=== PATIENT | male | born 1960 | race Caucasian/White ===

== ENCOUNTER 2017-11-22 06:56 | Inpatient (IN) | payer MEDICARE, MEDICAID, SELFPAY ==
[2017-10-25 14:48] VITALS: BMI 36.1
[2017-11-22] VITALS (17 sets, daily range): BP systolic 105–153; BP diastolic 78–97; PULSE 78–105; RESP 10–20; TEMP 36.2–36.7; O2SAT 87–98; BMI 36.6
--- NOTE | 2017-11-22 | DI.RAD.S_ITS ---
PROCEDURE: XR HIP W PEL IF DONE LT 2V INDICATIONS: POST OPERATIVE TOTAL LEFT HIP TECHNIQUE: AP pelvis and lateral view of the left hip acquired. COMPARISON: [facility], MELISSA, XR PELVIS 1-2V, 11/22/2017, 9:31. FINDINGS: Bones: Patient is status post left hip arthroplasty, with hardware components in expected positions. The hip joint appears congruent. The visualized bony structures appear intact. Soft tissues: Overlying postoperative changes are noted. No suspicious soft tissue densities. IMPRESSION: Normal postoperative alignment after left total hip arthroplasty. Dictated by: Omar Ariza M.D. on 11/22/2017 at 11:55 Approved by: Omar Ariza M.D. on 11/22/2017 at 11:56
--- NOTE | 2017-11-22 06:56 | DI.RAD.S_ITS ---
PROCEDURE: XR PELVIS 1-2V INDICATIONS: prosthesis placement TECHNIQUE: 1 view of the lower pelvis acquired. COMPARISON: None. FINDINGS: Bones: Patient is status post left hip arthroplasty, with hardware components in expected positions. The hip joint appears congruent. The visualized bony structures appear intact. Soft tissues: Overlying postoperative changes are noted. No suspicious soft tissue densities. IMPRESSION: Post surgical changes from left total hip arthroplasty with anatomic left hip alignment. Dictated by: Bayron Orozco M.D. on 11/22/2017 at 10:17 Approved by: Bayron Orozco M.D. on 11/22/2017 at 10:18
[2017-11-22] MEDS: VANCOMYCIN 1,000 MG in SODIUM CHLORIDE 0.9% 500 ML 250 ML IV (07:15)
[2017-11-22] MEDS: LACTATED RINGERS 1,000 ML 42 ML IV (07:15)
[2017-11-22] MEDS: CELECOXIB 200 MG CAPSULE PO (07:19)
[2017-11-22] MEDS: PREGABALIN 75 MG CAPSULE PO (07:19)
--- NOTE | 2017-11-22 07:58 | PM.PREOP ---
Pre-operative Note Interval Note Pre-op Check: Yes History & Physical Reviewed by Physician and Yes Exam Performed Changes: No
--- NOTE | 2017-11-22 07:59 | PM.OP.1 ---
Operative Date/Time/Diagnoses Date of procedure: 11/22/17 Time of procedure: 08:11 Pre-op diagnosis: left hip AVN Post-op diagnosis: same Procedure & Clinicians Procedure: left total hip arthroplasty Same procedure as scheduled: Yes Indications: The patient has had progressively worsening left hip pain with radiographic changes consistent with arthritis. Non-operative management has failed and the patient has requested total hip replacement. The risks, benefits and alternatives to surgery were discussed with the patient prior to proceeding. Risks discussed included, but were not limited to, failure to relieve pain, leg length discrepancy, dislocation, stiffness, infection, nerve damage, deep venous thrombosis, pulmonary embolism, stroke, coma, heart attack, permanent paralysis and , as well as the potential need for eventual revision of the prosthetic. Surgeon: Shikha Aquino Meteorological Equipment Repairer: Norma Riggins Anesthesia Type: General Operative Notes Findings: Severe left hip avascular necrosis Closure Type: primary Specimen(s): none sent Implants & Drains: aquino and nephew R3 56, high offset size 8 anthology, +8 Estimated Blood Loss (mL): 300 Blood products transfused: none Procedure in detail: The patient was seen in the pre-operative area, where the patient identified the left hip as the operative site and this was marked with my initials. The patient received pre-operative antibiotics and was taken to the operating room and placed on the operative table in the right lateral decubitus position after satisfactory anesthesia. A brake coupler dinkey out was performed. The left leg was prepared from the ankle to the iliac crest with ChloroPrep in the usual fashion and draped through sterile drapes. The hip was approached through an approximately 20 cm incision centered over the greater trochanter and curving gently posteriorly as it went proximally. This was carried sharply to the fascia christina, which was divided and retracted with a self retaining retractor. The trochanteric bursa was excised with care being taken to avoid the sciatic nerve, which was identified and protected throughout the case. The short external rotators were incised and the capsulomuscular flap was raised and tagged for later repair. The hip was dislocated, and a femoral neck osteotomy performed approximately 15 mm above the lesser trochanter. Retractors were placed around the femur. The canal was opened with a box cutting osteotome, followed by a T handled reamer and a lateralizing reamer. The chili pepper broach was then used, followed by sequential broaching until there was good stability of the broach in the femur. Retractors were placed to expose the acetabulum. The labrum and central soft tissues were removed. Reaming was performed initially going up in 2 mm increments, then 1 mm increments until good bite was obtained with an odd sized reamer. The cup 1 mm larger than the last reamer was then inserted using the appropriate anteversion guides. A trial neutral liner was placed. The broach was placed in the canal. A trial head and neck were then placed and the hip relocated and checked for leg length and stability. An intraoperative film confirmed the component position and no evidence of fracture. The patient was stable in the position of sleep, of squatting, and could be put through a range of motion with 45 degrees internal rotation without dislocation. At 90 degrees flexion, internal rotation to 70 was possible before dislocation. This was felt to be satisfactory and the appropriate components were opened, and the trials were removed. The acetabular liner was impacted into position. The final stem was then impacted into the prepared femoral canal. A brief Betadine soak was performed while trialing with head options. The hip was meticulously irrigated with normal saline. Finally the femoral head was impacted onto the stem. The acetabulum was cleared of all material and the hip relocated one final time. The capsulomuscular flap was then repaired to the greater trochanter though an awl hole using the tag sutures. The short external rotators were repaired with a black braided nylon. A deep drain was placed and brought out anteriorly. The fascia christina was closed with black braided nylon. The subcutaneous layer was closed with barbed sutures and SteriStrips. An Aquacel Ag dressing was applied and the patient was taken to recovery having tolerated the procedure well. Complications: none Condition: stable Disposition: Acute Care Plan for aftercare: The patient will be maintained on a standard total hip replacement protocol with weight bearing as tolerated and posterior hip precautions. The patient will receive Aspirin and sequential compression devices for DVT prophylaxis. The patient will be discharged home when safe for the home environment.
[2017-11-22] MEDS: CEFAZOLIN 2 GM/100 ML FROZ.PIGGY IV ×2 (08:01→16:30)
[2017-11-22] MEDS: TRANEXAMIC ACID 1,000 MG VIAL 1000 MG IV (08:25)
--- NOTE | 2017-11-22 08:49 | SUR.OPER ---
Lateral on padded OR bed. Gel axillary roll. Arms secured on padded armboard with pillow supporting top arm. Padded hip positioner braces x4 - anterior and posterior chest and pelvis. Additional gel pad used anterior pelvis. Gel pad under bottom leg from knee to foot and secured with tape over sheet.
[2017-11-22] MEDS: POVIDONE-IODINE 15 ML, SODIUM CHLORIDE 0.9% 250 ML TOP (09:03)
[2017-11-22] MEDS: BUPIVACAINE LIPOSOME 266 MG/20 ML VIAL INJ (09:04)
[2017-11-22] MEDS: SODIUM CHLORIDE IRRIG SOLUTION 250 ML, EPINEPHrine 1 MG IRR (09:05)
[2017-11-22] MEDS: BUPIVACAINE 0.25% W/ EPI VIAL 50 ML INJ (09:07)
[2017-11-22] MEDS: TRANEXAMIC ACID 1,000 MG VIAL 1000 MG INJ (10:18)
[2017-11-22] MEDS: fentaNYL 100 MCG/2 ML INJ 50 MCG IV ×3 (10:45→10:58)
[2017-11-22] MEDS: LORazepam 2 MG/ML SYRINGE 0.25 MG IV ×3 (11:10→11:31)
[2017-11-22] MEDS: OXYCODONE/ACETAMINOPHEN 5/325 TABLET 1 TAB PO (11:27)
[2017-11-22] MEDS: KETOROLAC 30 MG/ML VIAL IV (12:37)
[2017-11-22] MEDS: ACETAMINOPHEN 325 MG TABLET 975 MG PO ×2 (12:38→21:05)
[2017-11-22] MEDS: LACTATED RINGERS 1,000 ML 125 ML IV ×2 (12:38→21:14)
[2017-11-22] MEDS: OXYCODONE IR 5 MG TABLET 10 MG PO ×2 (13:15→17:11)
--- NOTE | 2017-11-22 13:50 | PC.NURSE ---
Hip precautions: Confirmed with Dr Estes (via STUDIO MODEL) that patient's surgery was done with a posterior approach. Will pass this info along to PT.
--- NOTE | 2017-11-22 14:41 | PT.IIE ---
Current Diagnoses Unilateral primary osteoarthritis, left hip (11/22/17) Surgery Performed Operation Date: 11/22/17 07:45 Actual Procedures p Total Hip Arthroplasty(Left) - Shikha Estes MD Surgical History (Last Updated 08/26/17 @ 11:24 by Niurka Nolen RN) History of vasectomy (Acute) Hx of cervical discectomy (Acute) Medical History (Last Updated 08/26/17 @ 11:24 by Niurka Nolen RN) Abscess (Acute) Anxiety about health (Acute) Cardiomyopathy (Acute) Chronic back pain (Acute) DVT, bilateral lower limbs (Acute) Epididymitis (Acute) Hepatitis C carrier (Acute) History of tooth extraction (Acute) MRSA (methicillin resistant Staphylococcus aureus) (Acute) Methemoglobinemia (Acute) Numbness (Acute) Obturator dislocation of left hip (Acute) Pelvic fracture (Acute) Pneumonia (Acute) Seizures (Acute) Stomach ache (Acute) Physical Therapy Inpatient Evaluation/Re-Eval Medical Review Prior Functional Status Medical History Reviewed Yes Diet/Fluid Consistency Regular Communication no known deficits Mobility and Gait mod ind w/ FWW Activities of Daily Living and IADL's reports not needing any help do complete self-care activities Social History Household Members significant other friend(s) Living Arrangements House Number of Floors (Floors) One Floor Number of Stairs To Enter/Railing? 2STE, no rails. Home Environment Standard Height Toilet Tub/Shower Home Equipment Front Wheel Walker Additional Social History Comment SO can provide 24/7 assist per pt Physical Therapy Current Condition Current Condition Evaluation Date 11/22/17 Treatment Diagnosis L post GEMINI Onset Date 11/22/17 Precautions Posterior Hip Precautions No Hip Flexion > 90 degrees No Hip Internal Rotation No Hip Adduction Weight Bearing Status Weight Bearing Status Weight Bear as Tolerated Subjective Physical Therapy Visit Type Type Initial Evaluation Visit Start Time 13:55 Visit Stop Time 14:27 Total Visit Minutes 32 Physical Therapy Visit Comments Patient Comments Pt reports 8/10 pain at rest but that he couldn't be happier about how well he's doing after finally getting this surgery. Short Term Goals go home Therapy Pain Assessment Pain When Pain Assessed At Rest Pain Present Pain Present Pain Reported Location Left Hip Intensity 8 Scale Used Numeric (1 - 10) Description Aching Cramping Pressure Pain Management Techniques Modification of Treatment Timing of Activity with Medications PT-Transfer Assessment Comments Mobility Comments not safe to perform mobility at this time. Gait Assessment Comments Gait Comments not safe to perform mobility at this time. Stair Climbing Assessment Comments Stair Climbing Comments not safe to perform mobility at this time. Orientation Orientation/Cognition Level of Alertness Confusional State Orientation Name Age Birthday Month Date Year Day of Week Place Situation Safety Awareness Decreased Safety Awareness Comments Pt able to answer all questions correctly but sometimes needing a significant amount of time with tangential paths to get to the answer. Pt having an extremely hard time keeping his eyes open during questioning but wakes easily to voice and is talkative for a few moments before falling asleep again. Gross Range of Motion Upper Extremity ROM Assessment Within Functional Limits Lower Extremity ROM Assessment Left Impaired Strength Upper Extremity Strength Assessment Within Functional Limits Lower Extremity Strength Assessment Left Impaired Comments Strength Comments pain related weakness s/p L GEMINI Physical Therapy Treatment Exercises Exercises Ankle Pumps Gluteal Sets Quad Sets Heel Slides Supine Hip Abduction Education Education Provided Precautions Weight Bearing Status Post-Op Packet Safety PT Summary Assessment and Plan Potential Rehabilitation Potential Fair Status of Condition at Evaluation Evolving Summary Impairments Pain Strength Cognition Bed Mobility Transfers Gait Activity Tolerance Progress Towards Goals Slow Progress due to Medical Issues Assessment Summary Pt is POD#0 L post GEMINI. Laying flat in supine pt's legs both appear to be the same length. Pt having difficulty staying awake and focused on each task , needing near constant cues for minimal participation. Even during exercises pt was falling asleep mid-movement. Pt has good quad activation and can perform heel slides and hip abd/add with assist. Pt denied increase in pain while performing exercises. However, it is not safe for pt to attempt a mobility assessment at this time due to his impaired level of arousal . Will attempt to finish assessment later today or tomorrow, after which a more accurate recommendation can be made for dispo. Goals Bed Mobility Goal Standby Assistance Transfer Goal Standby Assistance Front Wheeled Walker Gait Goal Standby Assistance Front Wheel Walker Gait Distance 50 Other Goals Up 2 steps without rail with CGA. Days to Meet Goals 3 Frequency of Treatment Frequency Of Treatment Twice a Day Treatment Plan Physical Therapy Treatment Plan Bed Mobility Training Transfer Training Gait Training Therapeutic Exercise Balance Retraining Post Op Education Discharge Planning Hot or Cold Pack Neuromuscular Re-ed Coordination Retraining Manual Therapy Recommendations To Nursing Amount of Assist Needed 2 Person Assist Discharge Recommendations PT Discharge Recommendations Home with 24/ Assist SNF Rehab
--- NOTE | 2017-11-22 14:42 | PC.NURSE ---
Post-op: Arrived to room 211 at 1155. Awake, drowsy. Dozing intermittently, but any time he's awake he rates his L hip pain 8/10. Has been medicated with IV Toradol, Oxycodone and Tylenol per orders. Ice pack to L hip. L hip dressing C/D/I, hemovac compressed and with sanguinous drainage. CMS++, strong pedal pulses, cap refill <2 sec. Pillow between legs, SCD's in place. Tolerating general diet without N/V. On 2L O2 with sats mid 90's asleep (de-sats on RA asleep to 87-88%). IVF per orders, site in L hand WNL. Oriented to room and call light. Chair alarm on patient in bed (bed needs re-zeroed when he gets up).
--- NOTE | 2017-11-22 16:46 | PC.NURSE ---
Addendum entered by Maureen Ricardo R.N. 11/22/17 21:43: Med @ 2110 w/ oxycodone 15mg for discomfort. Dsg to surgical hip CDI, HV intact w/ serous drainage. IV continues as per orders w/o incidence. Stable post op course. Call light w/in reach, bed alarm on for pt safety. Continue w/plan of care. Original Note: Pt resting quietly at this time. Denies discomfort. IV LR @ 125cc/hr infusing into the left hand via pump w/o incidence. SpO2 93% on 2L O2. Stable post op course. Call light w/in reach, bed alarm on for pt safety.
[2017-11-22] MEDS: OXYCODONE IR 5 MG TABLET 15 MG PO (21:09)
[2017-11-23] VITALS (7 sets, daily range): BP systolic 122–132; BP diastolic 75–91; PULSE 67–90; RESP 16–20; TEMP 36.3–36.6; O2SAT 94–97
[2017-11-23] MEDS: CEFAZOLIN 2 GM/100 ML FROZ.PIGGY IV (00:13)
[2017-11-23] MEDS: OXYCODONE IR 5 MG TABLET 15 MG PO ×7 (00:15→22:40)
--- NOTE | 2017-11-23 00:20 | PC.NURSE ---
Addendum entered by Susan Laird R.N. 11/23/17 06:33: 0545- pt refused morning labs, this health technical writer spoke with pt and he then was compliant. will continue to monitor. Original Note: Addendum entered by Susan Laird R.N. 11/23/17 05:25: 0505- pt awoken for pain meds. Pt states his pain is a five, offered two oxycodone as per order and pt stated he wanted three as two doesn't really work. Pt falling asleep while talking about meds. but arouses to voice. bed alarm on, side rails upx3, will continue to monitor. Original Note: Assumed care of pt from outgoing shift at 2300 8-28. Pt awake at this time. participated in bedside report. questions answered. 2330- pt compliant with assessments. complains of pain, will give upon available. PT states the pain medications doesn't really help with the pain. Pt uses call light. voiding abran urine. fluids infusing. discussed IS use and oxygen. turned pt down to 1L NC, will monitor. Pt uses call light. belongings and call light within reach. will continue to monitor pt for safety.
[2017-11-23 05:59] LABS: Hematocrit 41.6 % (41-53); Hemoglobin 14.2 g/dL (13.5-17.5)
--- NOTE | 2017-11-23 07:49 | PM.PNPO.1 ---
Subjective Date Patient Seen: 11/23/17 Time Patient Seen: 07:30 Interval history: Post op day 1 status post L hip arthroplasty with Dr. Estes. Patient is laying in bed comfortably without any signs of distress. He reports that his pain is well manageable at this time. He has not started PT. Denies fever, chills, vomiting, chest pain or respiratory distress. Exam Vital Signs (past 8 hours): - 11/23/17 01:30 11/23/17 05:18 Temperature 97.8 F Pulse Rate 75 Respiratory Rate 16 Blood Pressure 128/82 H Pulse Oximetry 94 94 Oxygen Delivery Method Nasal Cannula Oxygen Flow Rate 0 Narrative Exam Narrative: Patient is AOx3. Well developed gentlemen in no acute distress. L hip dressing is intact with minimal drainage. Hemovac drain is in place with mild output. Dorsalis pedis and radial pulses are 2+ and symmetric. Sensation to LE intact to light touch bilaterally. Muscle strength 5/5 in dorsiflexion and plantarflexion bilaterally. DVT compression device noted on LE bilaterally. Calfs are non tender, soft and compressible. No neurological deficits noted. Objective Labs Result Diagrams: 11/23/17 05:31 Labs: Laboratory Results - last 24 hr 11/23/17 05:31 Hgb 14.2 Hct 41.6 Assessment & Plan Post-op Postoperative Procedures Operation Date: 11/22/17 07:45 Actual Procedures Side Surgeon p Total Hip Arthroplasty Left Shikha Estes MD Postoperative day: 1 Postoperative status: doing well Postoperative plan: routine post-op care Postoperative plan narrative: Start mobilizing with PT on a standard total hip replacement protocol with weight bearing as tolerated and posterior hip precautions. Continue aspirin and sequential compression devices for DVT prophylaxis. Likely to be discharged home in 1-2 days. Time Spent With Patient less than 15 minutes
[2017-11-23] MEDS: ACETAMINOPHEN 325 MG TABLET 975 MG PO ×3 (09:00→20:12)
[2017-11-23] MEDS: DOCUSATE 100 MG CAPSULE PO ×2 (09:00→20:12)
[2017-11-23] MEDS: SODIUM CHLORIDE 0.9% FLUSH 10 ML IV ×2 (09:01→20:12)
--- NOTE | 2017-11-23 09:25 | PT.IPTN ---
Current Diagnoses Unilateral primary osteoarthritis, left hip (11/22/17) Surgery Performed Operation Date: 11/22/17 07:45 Actual Procedures p Total Hip Arthroplasty(Left) - Shikha Estes MD Physical Therapy Treatment Note M2 PT-IP Current Condition Start: 11/22/17 12:19 Freq: NEEDED Status: Active Protocol: Document 11/22/17 14:27 RS (Rec: 11/22/17 14:41 RS [id number]) Physical Therapy Current Condition Current Condition Evaluation Date 11/22/17 Treatment Diagnosis L post GEMINI Onset Date 11/22/17 Precautions Posterior Hip Precautions No Hip Flexion > 90 degrees No Hip Internal Rotation No Hip Adduction Weight Bearing Status Weight Bearing Status Weight Bear as Tolerated M3 PT-IP Subjective Start: 11/22/17 12:19 Freq: NEEDED Status: Active Protocol: Document 11/23/17 09:25 GGD (Rec: 11/23/17 11:06 GGD [id number]) Subjective Physical Therapy Visit Type Type Treatment Note Visit Start Time 09:00 Visit Stop Time 09:25 Total Visit Minutes 25 Number of RAND MAKER Visits 1 Physical Therapy Visit Comments Patient Comments Pt states that he has no pain when not moving, and is ready to get out of bed. Therapy Pain Assessment Pain When Pain Assessed At Rest Pain Present Pain Present Denied Pain M4 PT-IP Mobility and Gait Start: 11/22/17 12:19 Freq: NEEDED Status: Active Protocol: Document 11/23/17 09:25 GGD (Rec: 11/23/17 11:06 GGD [id number]) PT-Bed Mobility Assessment Supine to Sit Supine to Sit Contact Guard Assistance Scooting Scooting to Edge of Bed Contact Guard Assistance PT-Transfer Assessment Sit to and From Stand Sit to and from Stand Contact Guard Assistance Use of Upper Extremities Equipment Transfer Assistive Device Gait Belt Front Wheeled Walker Transfers Transfer Destination Chair Comments Mobility Comments Pt needed mod cues for safety, hip precautions and pace. Gait Assessment Gait Gait Assistance Required: Contact Guard Assist Distance (Feet) (feet) 15 Able to Maintain Weight Bearing Status Yes During Gait Assistive Devices Assistive Device Gait Belt Front Wheeled Walker Gait Deviations General Gait Pattern Antalgic Decreased Stride Length Decreased Feet Clearance Step-to Gait Factors Limiting Gait Function Factors Limiting Gait Function Decreased Activity Tolerance Decreased Strength Limited Range of Motion Pain M5 PT-IP Objective Assessments Start: 11/22/17 12:19 Freq: NEEDED Status: Active Protocol: Document 11/22/17 14:27 RS (Rec: 11/22/17 14:41 RS [email or web address]) Orientation Orientation/Cognition Level of Alertness Confusional State Orientation Name Age Birthday Month Date Year Day of Week Place Situation Safety Awareness Decreased Safety Awareness Comments Pt able to answer all questions correctly but sometimes needing a significant amount of time with tangential paths to get to the answer. Pt having an extremely hard time keeping his eyes open during questioning but wakes easily to voice and is talkative for a few moments before falling asleep again. Gross Range of Motion Upper Extremity ROM Assessment Within Functional Limits Lower Extremity ROM Assessment Left Impaired Strength Upper Extremity Strength Assessment Within Functional Limits Lower Extremity Strength Assessment Left Impaired Comments Strength Comments pain related weakness s/p L EGMINI M6 PT-IP Treatment Start: 11/22/17 12:19 Freq: NEEDED Status: Active Protocol: Document 11/23/17 09:25 GGD (Rec: 11/23/17 11:06 GGD [id number]) Physical Therapy Treatment Exercises Exercises Ankle Pumps Gluteal Sets Quad Sets Heel Slides Supine Hip Abduction Education Education Provided Precautions Other Treatments Other Treatment Performed Pt recall 1/3 hip precaution. M7 PT-IP Assessment and Plan Start: 11/22/17 12:19 Freq: NEEDED Status: Active Protocol: Document 11/23/17 09:25 GGD (Rec: 11/23/17 11:06 GGD [id number]) PT Summary Assessment and Plan Summary Assessment Summary Pt improving with mobility. He did have increase in pain with with weight bearing and limit gait tolerance. He implusive and needs cues for safety and hip precautions with mobility. Frequency of Treatment Frequency Of Treatment Twice a Day Treatment Plan Physical Therapy Treatment Plan Bed Mobility Training Transfer Training Gait Training Therapeutic Exercise Balance Retraining Post Op Education Discharge Planning Hot or Cold Pack Neuromuscular Re-ed Coordination Retraining Manual Therapy Other Recommendations and Next Treatment 2 stairs withou rail. Focus Recommendations To Nursing Amount of Assist Needed 1 Person Assist Discharge Recommendations PT Discharge Recommendations Home with Assistance
--- NOTE | 2017-11-23 15:25 | PT.IPTN ---
Current Diagnoses Unilateral primary osteoarthritis, left hip (11/22/17) Surgery Performed Operation Date: 11/22/17 07:45 Actual Procedures p Total Hip Arthroplasty(Left) - Shikha Estes MD Physical Therapy Treatment Note M2 PT-IP Current Condition Start: 11/22/17 12:19 Freq: NEEDED Status: Active Protocol: Document 11/22/17 14:27 RS (Rec: 11/22/17 14:41 RS [email or web address]) Physical Therapy Current Condition Current Condition Evaluation Date 11/22/17 Treatment Diagnosis L post GEMINI Onset Date 11/22/17 Precautions Posterior Hip Precautions No Hip Flexion > 90 degrees No Hip Internal Rotation No Hip Adduction Weight Bearing Status Weight Bearing Status Weight Bear as Tolerated M3 PT-IP Subjective Start: 11/22/17 12:19 Freq: NEEDED Status: Active Protocol: Document 11/23/17 15:25 GGD (Rec: 11/23/17 16:00 GGD [email or web address]) Subjective Physical Therapy Visit Type Type Treatment Note Visit Start Time 14:55 Visit Stop Time 15:25 Total Visit Minutes 30 Number of DIESEL TRACTOR ENGINE MECHANIC Visits 2 Physical Therapy Visit Comments Patient Comments Pt states that he want's to get out of bed. Therapy Pain Assessment Pain When Pain Assessed At Rest Pain Present Pain Present Denied Pain Location Left Hip Intensity 4 Scale Used Numeric (1 - 10) Pain Management Techniques Re-positioning Timing of Activity with Medications M4 PT-IP Mobility and Gait Start: 11/22/17 12:19 Freq: NEEDED Status: Active Protocol: Document 11/23/17 15:25 GGD (Rec: 11/23/17 16:00 GGD [email or web address]) PT-Bed Mobility Assessment Supine to Sit Supine to Sit Contact Guard Assistance Scooting Scooting to Edge of Bed Contact Guard Assistance PT-Transfer Assessment Sit to and From Stand Sit to and from Stand Contact Guard Assistance Use of Upper Extremities Transfers Transfer Destination Chair Comments Mobility Comments Pt needed mod cues for safety, hip precautions. Gait Assessment Gait Gait Assistance Required: Contact Guard Assist Distance (Feet) (feet) 70 Able to Maintain Weight Bearing Status Yes During Gait Assistive Devices Assistive Device Gait Belt Front Wheeled Walker Gait Deviations General Gait Pattern Antalgic Decreased Stride Length Decreased Feet Clearance Step-to Gait Factors Limiting Gait Function Factors Limiting Gait Function Decreased Activity Tolerance Decreased Strength Limited Range of Motion Pain M5 PT-IP Objective Assessments Start: 11/22/17 12:19 Freq: NEEDED Status: Active Protocol: Document 11/22/17 14:27 RS (Rec: 11/22/17 14:41 RS [email or web address]) Orientation Orientation/Cognition Level of Alertness Confusional State Orientation Name Age Birthday Month Date Year Day of Week Place Situation Safety Awareness Decreased Safety Awareness Comments Pt able to answer all questions correctly but sometimes needing a significant amount of time with tangential paths to get to the answer. Pt having an extremely hard time keeping his eyes open during questioning but wakes easily to voice and is talkative for a few moments before falling asleep again. Gross Range of Motion Upper Extremity ROM Assessment Within Functional Limits Lower Extremity ROM Assessment Left Impaired Strength Upper Extremity Strength Assessment Within Functional Limits Lower Extremity Strength Assessment Left Impaired Comments Strength Comments pain related weakness s/p L GEMINI M6 PT-IP Treatment Start: 11/22/17 12:19 Freq: NEEDED Status: Active Protocol: Document 11/23/17 15:25 GGD (Rec: 11/23/17 16:00 GGD [email or web address]) Physical Therapy Treatment Exercises Exercises Ankle Pumps Gluteal Sets Quad Sets Supine Hip Abduction Education Education Provided Precautions Other Treatments Other Treatment Performed Pt recall 1/3 hip precaution. M7 PT-IP Assessment and Plan Start: 11/22/17 12:19 Freq: NEEDED Status: Active Protocol: Document 11/23/17 15:25 GGD (Rec: 11/23/17 16:00 GGD [email or web address]) PT Summary Assessment and Plan Summary Assessment Summary Pt able to progress gait. He did have increase in pain with gait. He is implusive and needs cues for hip precautions with bed mobility and transfers. Frequency of Treatment Frequency Of Treatment Twice a Day Treatment Plan Physical Therapy Treatment Plan Bed Mobility Training Transfer Training Gait Training Therapeutic Exercise Balance Retraining Post Op Education Discharge Planning Hot or Cold Pack Neuromuscular Re-ed Coordination Retraining Manual Therapy Other Recommendations and Next Treatment 2 stairs withou rail. Focus Recommendations To Nursing Amount of Assist Needed 1 Person Assist Discharge Recommendations PT Discharge Recommendations Home with Assistance
--- NOTE | 2017-11-23 21:11 | PC.NURSE ---
TYLOR SHIFT: Patient doing well this shift. Pain tolerable with oxycodone per patient report. SL, VSS. No acute distress. Patient resting quietly in bed at this time. Call light in reach. Will continue to monitor.
[2017-11-23] MEDS: diazePAM 5 MG TABLET PO (22:49)
[2017-11-24] MEDS: OXYCODONE IR 5 MG TABLET 15 MG PO ×3 (05:20→11:13)
[2017-11-24 05:39] VITALS: BP 136/82; PULSE 71; RESP 16; TEMP 36.6; O2SAT 95
--- NOTE | 2017-11-24 06:51 | PC.NURSE ---
Assumed care of pt from outgoing shift at 2300 8-29. Pt awake at this time. participated in bedside report. questions answered. Pt uses call light. Pt not able to get any pain meds at this time. 2330- pt compliant with assessments. complains of pain, will give upon available. Pt uses call light. voiding abran urine.. discussed IS use. on room air. Pt uses call light. belongings and call light within reach. will continue to monitor pt for safety. 0100- pt asleep will monitor.
[2017-11-24] MEDS: DOCUSATE 100 MG CAPSULE PO (08:06)
[2017-11-24] MEDS: ACETAMINOPHEN 325 MG TABLET 975 MG PO (08:06)
--- NOTE | 2017-11-24 08:10 | PM.DS.1 ---
History of Present Illness Date Patient Seen: 11/24/17 Time Patient Seen: 07:30 Chief complaint: [id number] LEFT TOTAL HIP ARTHROPLASTY Narrative: Patient admitted to hospital for the above mentioned procedure. Patient tolerated procedure well. Patient woman is home to assist him. Patient pain is well managed. Patient is stable for discharge. Discharge Providers Date of admission: 11/22/17 06:56 Consults: 11/22/17 12:14 Consult to Discharge Planning Routine Comment: Consult to Physical Therapy Evaluate & Treat Comment: Physician Instructions: post op GEMINI protocol Consult to Respiratory Therapy Evaluate & Treat Comment: Physician Instructions: Evaluate and treat Discharge provider: Zofia Shrestha PA-C Summary Discharge Diagnosis: left hip AVN Hospital Course: Patient was admitted status post L total hip arthroplasty 0n 11/22/17. Patient tolerated procedure well with no major complications. Patient was transferred to the acute care floor for the remainder of his stay. Patient was seen by physical therapy who recommended that he be discharge home with outpatient PT. Patient is stable and ready for discharge on 11/24/17. Status at Discharge Functional status at discharge: uses cane/walker Overall status at discharge: patient is progressing back to baseline Time Spent with Patient Less than 30 minutes Exam Vital Signs (past 8 hours): - 11/24/17 05:39 Temperature 97.9 F Pulse Rate 71 Respiratory Rate 16 Blood Pressure 136/82 H Pulse Oximetry 95 Oxygen Delivery Method Nasal Cannula Oxygen Flow Rate 0 Narrative Exam Narrative: Patient is AOx3. Patient is a well developed gentlemen in no acute distress. Left hip dressing intact with mild drainage. Hemovac intact with mild output. Dorsalis pedis and radial pulses are 2+ and symmetric. Sensation to LE intact to light touch bilaterally. Muscle strength is 5/5 in dorsiflexion, plantar flexion and forensic audit expert bilaterally. DVT compression device intact bilaterally. Calfs are soft, contender and compressible. Objective Labs Result Diagrams: 11/23/17 05:31 Discharge Plan Discharge Plan Patient Disposition: Home Discharge Med Rec/Prescriptions Prescriptions: New acetaminophen 325 mg Tablet 975 mg PO TID Qty: 0 RF: 0 aspirin 81 mg Tablet,Delayed Release (Dr/Ec) 81 mg PO BID Qty: 0 RF: 0 docusate sodium 100 mg Capsule 100 mg PO BID Qty: 0 RF: 0 oxycodone 10 mg tablet 10 mg PO Q4-6H PRN (Reason: pain) Qty: 40 RF: 0 hydroxyzine pamoate [Vistaril] 25 mg capsule 25 mg PO Q6-8H PRN (Reason: nausea and vomiting) Qty: 50 RF: 0 Discontinued ibuprofen 200 mg Tablet 800 mg PO TID RF: 0 Follow up/Referrals: Shikha Estes MD [Physician] - (Follow up in 5-7 days at your previously scheduled visit) Provider Discharge Instructions Diet: Diet as Tolerated Activity: WBAT, follow posterior hip precautions, use walker to ambulate Cold/Heat Therapy: Ice for 20 minutes at a time every hour while awake Skin/Wound/Dressing Care Report to your healthcare provider any signs of infection, such as:: chills, fever, night sweats, increased pain and unusual drainage Dressing: Keep Aquacel dressing on, may shower with it in place Visit Report/Discharge Packet Instructions: DI for Hip Replacement Visit Report Forms: Stroke Signs & Symptoms Discharge Data Attending Provider: Shikha Estes Admit Date/Time: 11/22/17 06:56 Discharges patient from system. Discharge Date/Time: 11/24/17 11:24
[2017-11-24 08:30] VITALS: BP 137/67; PULSE 82; RESP 18; TEMP 36.6
--- NOTE | 2017-11-24 11:24 | PC.NURSE ---
Pt escorted out via w/c. waiting outside in vehicle.
--- NOTE | 2017-11-24 12:16 | PT.IPTN ---
Current Diagnoses Unilateral primary osteoarthritis, left hip (11/22/17) Surgery Performed Operation Date: 11/22/17 07:45 Actual Procedures p Total Hip Arthroplasty(Left) - Shikha Estes MD Physical Therapy Treatment Note M2 PT-IP Current Condition Start: 11/22/17 12:19 Freq: NEEDED Status: Discharge Protocol: Document 11/22/17 14:27 RS (Rec: 11/22/17 14:41 RS [email or web address]) Physical Therapy Current Condition Current Condition Evaluation Date 11/22/17 Treatment Diagnosis L post GEMINI Onset Date 11/22/17 Precautions Posterior Hip Precautions No Hip Flexion > 90 degrees No Hip Internal Rotation No Hip Adduction Weight Bearing Status Weight Bearing Status Weight Bear as Tolerated M3 PT-IP Subjective Start: 11/22/17 12:19 Freq: NEEDED Status: Discharge Protocol: Document 11/24/17 09:25 GGD (Rec: 11/24/17 12:16 GGD [id number]) Subjective Physical Therapy Visit Type Type Treatment Note Visit Start Time 09:00 Visit Stop Time 09:25 Total Visit Minutes 25 Number of TRIPE FINISHER Visits 3 Physical Therapy Visit Comments Patient Comments Pt states he hopes to go home today. Therapy Pain Assessment Pain When Pain Assessed At Rest Pain Present Pain Present Pain Reported Location Left Hip Intensity 5 Scale Used Numeric (1 - 10) M4 PT-IP Mobility and Gait Start: 11/22/17 12:19 Freq: NEEDED Status: Discharge Protocol: Document 11/24/17 09:25 GGD (Rec: 11/24/17 12:16 GGD [email or web address]) PT-Bed Mobility Assessment Supine to Sit Supine to Sit Contact Guard Assistance Scooting Scooting to Edge of Bed Standby Assistance PT-Transfer Assessment Sit to and From Stand Sit to and from Stand Contact Guard Assistance Use of Upper Extremities Transfers Transfer Destination Chair Comments Mobility Comments Pt needed mod cues for safety, hip precautions. Gait Assessment Gait Gait Assistance Required: Contact Guard Assist Distance (Feet) (feet) 80 Assistive Devices Assistive Device Gait Belt Front Wheeled Walker Gait Deviations General Gait Pattern Antalgic Decreased Stride Length Decreased Feet Clearance Step-to Gait Factors Limiting Gait Function Factors Limiting Gait Function Decreased Activity Tolerance Decreased Strength Limited Range of Motion Pain Stair Climbing Assessment Evaluation Level of Assist On Stairs Contact Guard Assistance Devices Stair Climbing Assistive Devices Left Railing Right Railing Technique/Endurance Stair Climbing Direction Ascend and Descend Stair Climbing Technique Step to Step Number of Steps Climbed 3 Query Text: Stair Climbing Set # Repetitions (reps) 1 M5 PT-IP Objective Assessments Start: 11/22/17 12:19 Freq: NEEDED Status: Discharge Protocol: Document 11/22/17 14:27 RS (Rec: 11/22/17 14:41 RS [email or web address]) Orientation Orientation/Cognition Level of Alertness Confusional State Orientation Name Age Birthday Month Date Year Day of Week Place Situation Safety Awareness Decreased Safety Awareness Comments Pt able to answer all questions correctly but sometimes needing a significant amount of time with tangential paths to get to the answer. Pt having an extremely hard time keeping his eyes open during questioning but wakes easily to voice and is talkative for a few moments before falling asleep again. Gross Range of Motion Upper Extremity ROM Assessment Within Functional Limits Lower Extremity ROM Assessment Left Impaired Strength Upper Extremity Strength Assessment Within Functional Limits Lower Extremity Strength Assessment Left Impaired Comments Strength Comments pain related weakness s/p L GEMINI M6 PT-IP Treatment Start: 11/22/17 12:19 Freq: NEEDED Status: Discharge Protocol: Document 11/24/17 09:25 GGD (Rec: 11/24/17 12:16 GGD [id number]) Physical Therapy Treatment Exercises Exercises Ankle Pumps Gluteal Sets Quad Sets Supine Hip Abduction Education Education Provided Precautions Other Treatments Other Treatment Performed Pt recall 2/3 hip precaution. M7 PT-IP Assessment and Plan Start: 11/22/17 12:19 Freq: NEEDED Status: Discharge Protocol: Document 11/24/17 09:25 GGD (Rec: 11/24/17 12:16 GGD [id number]) PT Summary Assessment and Plan Summary Assessment Summary Pt needed less cueing for hip precautions with bed mobility. He is still implusive, but improving slowly with safety. Frequency of Treatment Frequency Of Treatment Twice a Day Treatment Plan Physical Therapy Treatment Plan Bed Mobility Training Transfer Training Gait Training Therapeutic Exercise Balance Retraining Post Op Education Discharge Planning Hot or Cold Pack Neuromuscular Re-ed Coordination Retraining Manual Therapy Other Recommendations and Next Treatment 2 stairs withou rail. Focus Recommendations To Nursing Amount of Assist Needed 1 Person Assist Discharge Recommendations PT Discharge Recommendations Home with Assistance
== END 2017-11-24 11:24 | disposition home or self-care (01) | DRG 470 ==
PROVIDERS: Admitting Provider Orthopaedic Surgery; Visit Provider Orthopaedic Surgery
PROC: 0SRB0JZ Replacement of Left Hip Joint with Synthetic Substitute, Open Approach (ICD-10-PCS; CPT 27130; principal; 2017-11-22 07:45)
DX: M16.12 Unilateral primary osteoarthritis, left hip (principal); M87.052 Idiopathic aseptic necrosis of left femur; R56.9 Unspecified convulsions; B19.20 Unspecified viral hepatitis C without hepatic coma; Z86.14 Personal history of Methicillin resistant Staphylococcus aureus infection; F12.90 Cannabis use, unspecified, uncomplicated; Z87.891 Personal history of nicotine dependence
CPT/HCPCS: 36415; 72170; 73502; 85014; 85018; 94760; 97110; 97161; 97530; C1776; C9290; J0171; J0690; J1885; J2060; J2250; J3010